=== PATIENT | female | born 1985 | race Caucasian/White ===

== ENCOUNTER 2018-01-25 14:20 | Inpatient (IN) | payer MEDICAID ==
[~2018-01-25 14:20] MED LIST: EPINEPHrine 0.1 MG/ML SYG
[2018-01-25] MEDS ORDERED: AMIODARONE 150MG/D5W BOLUS 100 ML (14:31)
[2018-01-25] MEDS ORDERED: AMIODARONE 150 MG INJ (14:31)
[2018-01-25] MEDS ORDERED: NORepinephrine 8MG/250 ML (PMX 250 ML (14:59)
[2018-01-25 15:29] LABS: ABNORMAL IP MESSAGE 1; HEMATOCRIT 34.5 % (37.0-47.0); HEMOGLOBIN 10.4 g/dl (12.0-16.0); MEAN CORPUSCULAR HEMOGLOBIN 30.4 pg (29.0-33.0); MEAN CORPUSCULAR HGB CONC 30.1 g/dl (32.0-37.0); MEAN CORPUSCULAR VOLUME 100.9 fl (82.0-101.0); NUCLEATED RED BLOOD CELLS% 0.3 /100WBC (0.0-0.0); PLATELET COUNT 116 10^3/UL (140-415); RED BLOOD COUNT 3.42 10^6/ul (4.20-5.40); RED CELL DISTRIBUTION WIDTH 12.3 % (11.5-14.5)
[2018-01-25 15:30] LABS: ADD MAN DIFF? YES; POSITIVE DIFF @See below
[2018-01-25] MEDS: SOD CHLORIDE 0.9% 1,000 ML IV ×4 (15:34→19:56)
[2018-01-25] MEDS: NORepinephrine 8MG/250 ML (PMX 250 ML IV (15:35)
[2018-01-25 15:46] LABS: ANION GAP 25 (8-16); BLOOD UREA NITROGEN 10 mg/dl (7-20); CALCIUM 8.7 mg/dl (8.4-10.2); CARBON DIOXIDE 26 mmol/L (21-31); CHLORIDE 99 mmol/L (97-110); CREATININE 0.85 mg/dl (0.44-1.00); GLUCOSE 392 mg/dl (70-220); POTASSIUM 3.5 mmol/L (3.5-5.1); SODIUM 146 mmol/L (135-144)
[2018-01-25 15:55] LABS: BAND NEUTROPHILS #M 0.4 10^3/ul (0.0-0.6); BAND NEUTROPHILS % (M) 3 % (0-4); EOSINOPHILS % (M) 1 % (0-7); LYMPHOCYTES % (M) 80 % (15-51); METAMYELOCYTES #M 0.3 10^3/ul (0.0-0.0); METAMYELOCYTES %M 2 % (0-0); MYELOCYTES #M 0.1 10^3/ul (0.0-0.0); MYELOCYTES % (M) 1 % (0-0); PLATELET ESTIMATE DECREASED; POLYCHROMASIA 1+ (0-0); REACTIVE LYMPHOCYTES #M 0.6 10^3/ul (0.0-0.0); REACTIVE LYMPHOCYTES% (M) 4 % (0-0); SEG NEUT #M 1.4 10^3/ul (1.6-7.5); SEGMENTED NEUTROPHILS (M) % 9 % (39-77); SMUDGE%M 13 % (0-0)
[2018-01-25 15:57] LABS: TROPONIN-I < 0.012 ng/ml (0.000-0.120)
[2018-01-25] MEDS: ASPIRIN 300 MG SUPP PR (16:15)
[2018-01-25] MEDS: CEFTRIAXONE 1 GM/50 ML (PMX) 50 ML IVPB (16:16)
[2018-01-25 16:21] LABS: ADD UMIC YES; UR ASCORBIC ACID NEGATIVE (NEGATIVE); UR BACTERIA FEW /HPF (NONE SEEN); UR BILIRUBIN (Dip) NEGATIVE (NEGATIVE); UR BLOOD (Dip) NEGATIVE (NEGATIVE); UR CLARITY CLOUDY (CLEAR); UR COLOR AMBER (YELLOW); UR GLUCOSE (Dip) NEGATIVE (NEGATIVE); UR KETONES (Dip) NEGATIVE (NEGATIVE); UR LEUKOCYTE ESTERASE (Dip) NEGATIVE Leu/ul (NEGATIVE); UR MUCUS MANY /HPF (NONE SEEN); UR NITRITE (Dip) POSITIVE (NEGATIVE); UR RBC 4 /HPF (0-5); UR SPECIFIC GRAVITY (Dip) 1.024 (1.003-1.030); UR SQUAMOUS EPITHELIAL CELL FEW /HPF (FEW); UR TOTAL PROTEIN (Dip) NEGATIVE (NEGATIVE); UR UROBILINOGEN (Dip) NEGATIVE (NEGATIVE); UR WBC 15 /HPF (0-5)
[2018-01-25 16:28] LABS: AADO2 Arterial 528.8 mmHg (7.0-24.0); Allen Test ACCEPTAB; Arterial Base Excess -8.3 mmol/L (-3.0-3); Arterial Blood Gas Oxygen Sat 96.7 mmHG (95.0-98.0); Arterial COHb 0.2 % (0.0-3.0); Arterial Fraction of Oxyhgb 96.3 % (93.0-99.0); Arterial HCO3 20.9 mmol/L (22.0-26.0); Arterial MetHb 0.2 % (0.0-1.5); Arterial Total Hemglobin 13.3 g/dl (12.0-18.0); Arterial pCO2 59.3 mmhg (35-45); MODE VENT - AC; Site Left Radial
[2018-01-25 16:40] LABS: ACETAMINOPHEN < 10.0 ug/ml (10.0-30.0)
[2018-01-25 16:40] LABS: SALICYLATE < 1.0 mg/dl (5.0-30.0)
[2018-01-25] MEDS ORDERED: MAGNESIUM HYDROXIDE 30ML CUP PO (17:00)
[2018-01-25] MEDS ORDERED: DOCUSATE SODIUM 100 MG CAP PO (17:00)
[2018-01-25] MEDS ORDERED: ACETAMINOPHEN 325 MG TAB PO (17:00)
[2018-01-25] MEDS ORDERED: HYDROCODONE/APAP (5/325) TAB PO (17:00)
[2018-01-25] MEDS ORDERED: ONDANSETRON 4 MG INJ IV (17:00)
[2018-01-25] MEDS ORDERED: VANCOMYCIN IV PER PHARMACY XX (17:00)
[2018-01-25] MEDS ORDERED: DEXTROSE 50% 50 ML SYRINGE IV ×2 (17:00)
[2018-01-25] MEDS ORDERED: NACL 0.9% 3 ML SYG IV (17:00)
[2018-01-25] MEDS ORDERED: BISACODYL (EC) 5 MG TAB PO (17:00)
[2018-01-25] MEDS ORDERED: morphine 2 MG INJ IV (17:00)
[2018-01-25] MEDS: ACCU-CHEK XX ×7 (17:09→23:00)
[2018-01-25 17:10] LABS: AMPHETAMINE/METHAMPHETAMINE POSITIVE (NEGATIVE); BARBITURATES NEGATIVE (NEGATIVE); BENZODIAZEPINES NEGATIVE (NEGATIVE); CANNABINOIDS NEGATIVE (NEGATIVE); COCAINE NEGATIVE (NEGATIVE); OPIATES POSITIVE (NEGATIVE)
[2018-01-25 17:16] LABS: ETHANOL < 10.0 mg/dl
[2018-01-25 17:24] LABS: LACTIC ACID 13.7 mmol/L (0.5-2.0)
[2018-01-25] MEDS: PANTOPRAZOLE IV 80 MG in SOD CHLORIDE 0.9% 100 ML IVPB (17:48)
[2018-01-25 17:57] LABS: MAGNESIUM 2.9 mg/dl (1.7-2.5)
[2018-01-25] MEDS ORDERED: ARTIFICIAL TEARS 15 ML OPH BOTH EYES (18:00)
[2018-01-25] MEDS ORDERED: OCULAR LUBRICANT 3.5 GM OPH OINT BOTH EYES (18:00)
[2018-01-25 18:07] LABS: B-TYPE NATRIURETIC PEPTIDE 157 PG/ML (0-125)
[2018-01-25] MEDS: PANTOPRAZOLE IV 80 MG in SOD CHLORIDE 0.9% 100 ML IV (18:07)
[2018-01-25] MEDS ORDERED: DOPamine-D5W 1.6 MG/ML 250 ML (19:23)
[2018-01-25] MEDS: VASOPRESSIN 60 UNIT in DEXTROSE 5% 60 ML IV (19:23)
[2018-01-25] MEDS: VANCOMYCIN 1 GM (PMX) 250 ML IVPB (19:23)
[2018-01-25] MEDS: DOPamine-D5W 1.6 MG/ML 250 ML IV (19:24)
[2018-01-25] MEDS ORDERED: PHENYLephrine 40 MG in DEXTROSE 5% 496 ML IV (19:30)
[2018-01-25 19:46] LABS: LACTIC ACID 9.1 mmol/L (0.5-2.0)
[2018-01-25] MEDS: FENTAnyl 50 MCG/ML VIAL IV (20:30)
[2018-01-25] MEDS: PIPER-TAZO 3.375 GM IV (PMX) 100 ML IVPB (20:42)
[2018-01-25 21:12] LABS: ABNORMAL IP MESSAGE 1; HEMATOCRIT 42.9 % (37.0-47.0); HEMOGLOBIN 13.6 g/dl (12.0-16.0); MEAN CORPUSCULAR HEMOGLOBIN 30.2 pg (29.0-33.0); MEAN CORPUSCULAR HGB CONC 31.7 g/dl (32.0-37.0); MEAN CORPUSCULAR VOLUME 95.1 fl (82.0-101.0); MEAN PLATELET VOLUME 8.4 fl (7.4-10.4); NUCLEATED RED BLOOD CELLS% 0.1 /100WBC (0.0-0.0); PLATELET COUNT 337 10^3/UL (140-415); RED BLOOD COUNT 4.51 10^6/ul (4.20-5.40); RED CELL DISTRIBUTION WIDTH 12.3 % (11.5-14.5)
[2018-01-25 21:12] LABS: WHITE BLOOD COUNT 28.8 10^3/ul (4.8-10.8)
[2018-01-25 21:16] LABS: POSITIVE DIFF @See below
[2018-01-25 21:17] LABS: ADD MAN DIFF? YES
[2018-01-25] MEDS ORDERED: PHENYLephrine 20MG IN 250 ML 250 ML IV (21:30)
[2018-01-25 21:31] LABS: AMYLASE 189 U/L (11-123); ANION GAP 12 (8-16); BLOOD UREA NITROGEN 17 mg/dl (7-20); CALCIUM 6.8 mg/dl (8.4-10.2); CARBON DIOXIDE 25 mmol/L (21-31); CHLORIDE 109 mmol/L (97-110); CREATININE 1.16 mg/dl (0.44-1.00); GLUCOSE 247 mg/dl (70-220); LIPASE 211 U/L (23-300); MAGNESIUM 2.4 mg/dl (1.7-2.5); PHOSPHORUS 7.5 mg/dl (2.5-4.9); POTASSIUM 3.3 mmol/L (3.5-5.1); SODIUM 143 mmol/L (135-144)
[2018-01-25 21:35] LABS: PARTIAL THROMBOPLASTIN TIME 69.4 Sec (25.0-35.0)
[2018-01-25 21:37] LABS: BAND NEUTROPHILS #M 4.3 10^3/ul (0.0-0.6); BAND NEUTROPHILS % (M) 15 % (0-4); EOSINOPHILS % (M) 1 % (0-7); GIANT THROMBO% (M) 1 % (0-0); LYMPHOCYTES #M 2.8 10^3/ul (0.8-2.9); LYMPHOCYTES % (M) 10 % (15-51); PLATELET ESTIMATE NORMAL; POLYCHROMASIA 2+ (0-0); SEG NEUT #M 22.6 10^3/ul (1.6-7.5); SEGMENTED NEUTROPHILS (M) % 74 % (39-77)
[2018-01-25 21:50] LABS: LACTIC ACID 7.1 mmol/L (0.5-2.0)
[2018-01-25] MEDS: PHENYLephrine 20MG IN 250 ML 250 ML IV (22:08)
[2018-01-25 22:18] LABS: CK INDEX 0.8; CREATINE KINASE 5863 IU/L (23-200)
[2018-01-25 22:24] LABS: FIBRINOGEN < 60.0 mg/dl (207-461)
[2018-01-25 22:25] LABS: D-DIMER > 10000.00 ng/ml (<460)
[2018-01-25 22:42] LABS: INR 3.09; PROTIME 32.8 Sec (11.9-14.9); PT RATIO 2.6
[2018-01-25 23:22] LABS: AADO2 Arterial 484.1 mmHg (7.0-24.0); Allen Test ACCEPTAB; Arterial COHb 0.3 % (0.0-3.0); Arterial Fraction of Oxyhgb 98.5 % (93.0-99.0); Arterial HCO3 17.9 mmol/L (22.0-26.0); Arterial MetHb 0.2 % (0.0-1.5); Arterial Total Hemglobin 14.7 g/dl (12.0-18.0); Arterial pCO2 38.3 mmhg (35-45); MODE VENT - AC; Site Right Brachial
[2018-01-25] MEDS: MIDAZOLAM (DRIP) 50 mg/50 mL 50 ML IV (23:26)
[2018-01-25] MEDS ORDERED: MEPERIDINE 25 MG INJ IV (23:30)
[2018-01-26] MEDS: PIPER-TAZO 3.375 GM IV (PMX) 100 ML IVPB ×3 (00:27→13:26)
[2018-01-26] MEDS: MEPERIDINE 25 MG INJ IV (00:37)
[2018-01-26] MEDS: ACCU-CHEK XX ×10 (01:00→09:00)
[2018-01-26] MEDS ORDERED: VECURONIUM 10 MG VIAL IV (01:30)
[2018-01-26] MEDS: VECURONIUM 10 MG VIAL IV (02:08)
[2018-01-26] MEDS: VECURONIUM 100 MG in DEXTROSE 5% 100 ML IV (02:09)
[2018-01-26] MEDS: SOD CHLORIDE 0.9% 1,000 ML IV ×3 (02:47→14:23)
[2018-01-26] MEDS ORDERED: PHENYLephrine 40 MG in DEXTROSE 5% 496 ML IV (04:00)
[2018-01-26] MEDS: NORepinephrine 16 MG in SOD CHLORIDE 0.9% 484 ML IV ×2 (04:55→14:23)
[2018-01-26] MEDS: PHENYLephrine 40 MG in SOD CHLORIDE 0.9% 496 ML IV ×3 (04:56→11:29)
[2018-01-26] MEDS: PANTOPRAZOLE IV 80 MG in SOD CHLORIDE 0.9% 100 ML IV ×2 (04:57→14:23)
[2018-01-26 05:17] LABS: ADD MAN DIFF? NO
[2018-01-26 05:22] LABS: WHITE BLOOD COUNT 21.6 10^3/ul (4.8-10.8)
[2018-01-26 05:22] LABS: ABNORMAL IP MESSAGE 1; BASOPHILS % 0.2 % (0.0-2.0); HEMATOCRIT 41.3 % (37.0-47.0); HEMOGLOBIN 13.3 g/dl (12.0-16.0); LYMPHOCYTES % 4.6 % (15.0-51.0); MEAN CORPUSCULAR HEMOGLOBIN 30.4 pg (29.0-33.0); MEAN CORPUSCULAR HGB CONC 32.2 g/dl (32.0-37.0); MEAN CORPUSCULAR VOLUME 94.5 fl (82.0-101.0); MEAN PLATELET VOLUME 8.7 fl (7.4-10.4); MONOCYTE # 0.3 10^3/ul (0.3-0.9); MONOCYTES % 1.3 % (0.0-11.0); NEUTROPHIL # 20.1 10^3/ul (1.6-7.5); NEUTROPHILS % 93.4 % (39.0-77.0); NUCLEATED RED BLOOD CELLS% 0.1 /100WBC (0.0-0.0); PLATELET COUNT 238 10^3/UL (140-415); RED BLOOD COUNT 4.37 10^6/ul (4.20-5.40); RED CELL DISTRIBUTION WIDTH 12.4 % (11.5-14.5)
[2018-01-26 05:23] LABS: POSITIVE DIFF @See below
[2018-01-26 05:32] LABS: HEMOGLOBIN A1C 5.4 % (0-5.9)
[2018-01-26 05:45] LABS: Arterial Base Excess -10.9 mmol/L (-3.0-3); Arterial Blood Gas Oxygen Sat 99.2 mmHG (95.0-98.0); Arterial COHb 0.3 % (0.0-3.0); Arterial Fraction of Oxyhgb 98.7 % (93.0-99.0); Arterial HCO3 15.2 mmol/L (22.0-26.0); Arterial MetHb 0.2 % (0.0-1.5); Arterial Total Hemglobin 14.2 g/dl (12.0-18.0); Arterial pCO2 26.8 mmhg (35-45); MODE VENT - AC; Site Femoral; Temperature 31.1 C
[2018-01-26 05:47] LABS: PARTIAL THROMBOPLASTIN TIME 45.4 Sec (25.0-35.0)
[2018-01-26] MEDS ORDERED: PANTOPRAZOLE 40 MG INJ IV (06:00)
[2018-01-26 06:02] LABS: ALANINE AMINOTRANSFERASE 312 IU/L (13-69); ALBUMIN/GLOBULIN RATIO 0.68; ALKALINE PHOSPHATASE 237 IU/L (42-121); ANION GAP 13 (8-16); BILIRUBIN,INDIRECT 0.2 mg/dl (0-1.1); BILIRUBIN,TOTAL 0.2 mg/dl (0.2-1.3); BLOOD UREA NITROGEN 20 mg/dl (7-20); CALCIUM 6.9 mg/dl (8.4-10.2); CARBON DIOXIDE 22 mmol/L (21-31); CHLORIDE 111 mmol/L (97-110); CHOL/HDL RATIO 3.3 RATIO; CHOLESTEROL 90 mg/dl (100-200); CREATININE 1.53 mg/dl (0.44-1.00); GLUCOSE 149 mg/dl (70-220); HDL CHOLESTEROL 27 mg/dl (34-82); LDL CHOLESTEROL,CALCULATED 47 mg/dl; MAGNESIUM 1.8 mg/dl (1.7-2.5); SODIUM 144 mmol/L (135-144); TOTAL PROTEIN 4.9 g/dl (6.1-8.1); TRIGLYCERIDES 81 mg/dl (0-149)
[2018-01-26 06:18] LABS: AMYLASE 151 U/L (11-123); BLOOD UREA NITROGEN 20 mg/dl (7-20); CHLORIDE 111 mmol/L (97-110); LIPASE 153 U/L (23-300); MAGNESIUM 1.8 mg/dl (1.7-2.5); SODIUM 144 mmol/L (135-144)
[2018-01-26 06:22] LABS: ASPARTATE AMINO TRANSFERASE 1239 IU/L (15-46)
[2018-01-26 06:25] LABS: POTASSIUM 2.3 mmol/L (3.5-5.1)
[2018-01-26 06:27] LABS: POTASSIUM 2.3 mmol/L (3.5-5.1)
[2018-01-26 06:29] LABS: ANION GAP 13 (8-16); CALCIUM 6.9 mg/dl (8.4-10.2); CARBON DIOXIDE 22 mmol/L (21-31); CREATININE 1.53 mg/dl (0.44-1.00); GLUCOSE 149 mg/dl (70-220); THYROID STIMULATING HORMONE 0.589 MIU/L (0.465-4.680)
[2018-01-26] MEDS: VASOPRESSIN 60 UNIT in DEXTROSE 5% 60 ML IV ×2 (06:31→14:05)
[2018-01-26] MEDS: POTASSIUM CHLORIDE 50 ML IVPB ×4 (06:56→14:00)
[2018-01-26] MEDS: DOPamine-D5W 1.6 MG/ML 250 ML IV ×2 (07:00→12:44)
[2018-01-26 07:30] LABS: CK INDEX 1.4; CREATINE KINASE 5295 IU/L (23-200)
[2018-01-26] MEDS: INSULIN HUMAN REGULAR 100 UNIT in SOD CHLORIDE 0.9% 99 ML IV (08:52)
[2018-01-26] MEDS ORDERED: VANCOMYCIN 750 MG in SOD CHLORIDE 0.9% 150 ML IVPB (09:00)
[2018-01-26] MEDS ORDERED: GLUCAGON 1 MG INJ IM (11:00)
[2018-01-26] MEDS ORDERED: GLUCOSE GEL 15 GRAM TUBE BUCCAL (11:00)
[2018-01-26] MEDS ORDERED: GLUCOSE GEL 15 GRAM TUBE PO ×2 (11:00)
[2018-01-26] MEDS ORDERED: DEXTROSE 50% 50 ML SYRINGE IV ×2 (11:00)
[2018-01-26 11:26] LABS: AADO2 Arterial 102.3 mmHg (7.0-24.0); Allen Test ACCEPTAB; Arterial Base Excess -10.6 mmol/L (-3.0-3); Arterial Blood Gas Oxygen Sat 97.6 mmHG (95.0-98.0); Arterial COHb 0.3 % (0.0-3.0); Arterial Fraction of Oxyhgb 97.2 % (93.0-99.0); Arterial HCO3 14.2 mmol/L (22.0-26.0); Arterial MetHb 0.1 % (0.0-1.5); Arterial Total Hemglobin 13.5 g/dl (12.0-18.0); Arterial pCO2 24.6 mmhg (35-45); MODE VENT - AC; Site Right Radial; Temperature 33.2 C
[2018-01-26] MEDS: INSULIN ASPART [NOVOLOG] 3 ML PEN SC (13:00)
[2018-01-26] MEDS: EPINEPHrine 4 MG in SOD CHLORIDE 0.9% 246 ML IV (13:25)
[2018-01-26] MEDS: PHENYLephrine 160 MG in DEXTROSE 5% 484 ML IV (14:09)
[2018-01-26] MEDS ORDERED: VANCOMYCIN 1 GM 250 ML IVPB (18:00)
[2018-01-26] MEDS: morphine (DRIP) 100 MG/100 ML 100 ML IV (18:40)
== END 2018-01-26 19:48 | disposition expired | DRG 871 ==
LOC: ICU 16:11 → E/R 14:20 → ICU 01-26 03:56
PROC: 6A4Z0ZZ Hypothermia, Single (ICD-10-PCS; principal; 2018-01-25)
PROC: 5A1935Z Respiratory Ventilation, Less than 24 Consecutive Hours (ICD-10-PCS; 2018-01-25)
PROC: 06HY33Z Insertion of Infusion Device into Lower Vein, Percutaneous Approach (ICD-10-PCS; 2018-01-25)
PROC: 5A12012 Performance of Cardiac Output, Single, Manual (ICD-10-PCS; 2018-01-25)
DX: A41.9 Sepsis, unspecified organism (principal); J96.01 Acute respiratory failure with hypoxia; R65.21 Severe sepsis with septic shock; J69.0 Pneumonitis due to inhalation of food and vomit; G93.1 Anoxic brain damage, not elsewhere classified; E87.0 Hyperosmolality and hypernatremia; E87.2 Acidosis; K92.2 Gastrointestinal hemorrhage, unspecified; L02.415 Cutaneous abscess of right lower limb; N39.0 Urinary tract infection, site not specified; F11.10 Opioid abuse, uncomplicated; F15.10 Other stimulant abuse, uncomplicated; D64.9 Anemia, unspecified; R73.9 Hyperglycemia, unspecified; B96.20 Unspecified Escherichia coli [E. coli] as the cause of diseases classified elsewhere; Z79.4 Long term (current) use of insulin
CPT/HCPCS: 36415; 36600; 70450; 71045; 76937; 80048; 80053; 80061; 80307; 81001; 81025; 82150; 82550; 82553; 82803; 82962; 83036; 83605; 83690; 83735; 83880; 84100; 84443; 84484; 85025; 85378; 85384; 85610; 85730; 86850; 86900; 86901; 87040; 87081; 87086; 92950; 93005; 93306; 94002; 94770; 96365; 99291-25